=== PATIENT | male | born 1985 | race Two or more races ===

== ENCOUNTER 2023-12-11 12:33 | Emergency (ER) | payer OTHER ==
[~2023-12-11] VITALS: Ht 182.9 cm; Wt 68.0 kg
[2023-12-11] MEDS ORDERED: TUSNEL LIQUID178 ML PO (14:56)
[2023-12-11] MEDS ORDERED: PAXLOVID 300-11 EAC1 PO (14:56)
[2023-12-11] MEDS ORDERED: PROAIR RESPICL90 MCG IH (14:56)
== END 2023-12-11 15:55 | disposition home or self-care (01) ==
LOC: ER 12:34
DX: U07.1 COVID-19 (principal)